=== PATIENT | female | born 1940 | race Caucasian/White ===

== ENCOUNTER 2018-04-13 19:16 | Inpatient (IN) | payer MEDICARE, OTHER ==
[~2018-04-13] VITALS: Ht 152.4 cm; Wt 56.7 kg
[2018-04-13] MEDS ORDERED: MEROPENEM 500MG 500 MG in SODIUM CHLORIDE 0.9% 50ML 50 ML IV SCH (19:45)
[2018-04-13 20:19] LABS: BASOPHILS # (AUTO) 0.1 (0.0-0.1); BASOPHILS % 0.7 % (0.0-1.0); EOSINOPHILS # (AUTO) 0.2 (0.0-0.4); EOSINOPHILS % 2.7 % (0.0-6.0); HEMATOCRIT 35.9 % (34.2-44.1); HEMOGLOBIN 12.2 g/dL (12.0-16.0); LYMPHOCYTES # (AUTO) 1.5 (1.0-3.2); LYMPHOCYTES % 17.9 % (18.0-39.1); MEAN CORPUSCULAR HEMOGLOBIN 29.8 pg (28-32); MEAN CORPUSCULAR VOLUME 87.8 fL (81-99); MONOCYTES # (AUTO) 1.2 (0.2-0.8); MONOCYTES % 14.4 % (4.4-11.3); NEUTROPHILS # (AUTO) 5.4 (2.1-6.9); NEUTROPHILS % 63.9 % (38.7-80.0); PLATELET COUNT 243 x10e3/uL (140-360); RED BLOOD COUNT 4.09 x10e6/uL (3.6-5.1); RED CELL DISTRIBUTION WIDTH 12.7 % (11.7-14.4)
[2018-04-13 20:31] LABS: BILIRUBIN,URINE 1+ (NEGATIVE); CLARITY,URINE SL CLOUDY (CLEAR); COLOR,URINE YELLOW (YELLOW); KETONES,URINE NEGATIVE (NEGATIVE); LEUKOCYTE ESTERASE ,URINE NEGATIVE (NEGATIVE); NITRITE,URINE POSITIVE (NEGATIVE); PROTEIN,URINE DIPSTICK NEGATIVE (NEGATIVE); URINE UROBILINOGEN 0.2 mg/dL (0.2 - 1)
[2018-04-13 20:34] LABS: ALANINE AMINOTRANSFERASE 16 IU/L (0-55); ALBUMIN 3.5 g/dL (3.5-5.0); ALBUMIN/GLOBULIN RATIO 1.1 (0.8-2.0); ALKALINE PHOSPHATASE 52 IU/L (40-150); ANION GAP 12.8 mmol/L (8-16); BACTERIA,URINE FEW /HPF; BLOOD UREA NITROGEN 15 mg/dL (7-26); BUN/CREATININE RATIO 20 (6-25); CALCIUM 8.8 mg/dL (8.4-10.2); CARBON DIOXIDE 27 mmol/L (22-29); CHLORIDE 90 mmol/L (98-107); CREATININE, SERUM 0.75 mg/dL (0.57-1.11); EPITHELIAL CELLS,URINE RARE /LPF; EST GLOMERULAR FILTRATION RATE > 60 ML/MIN (60-); GLUCOSE 120 mg/dL (74-118); RBC,URINE 21-50 /HPF (0-5); SODIUM 127 mmol/L (136-145)
[2018-04-13 20:39] LABS: POTASSIUM 2.8 mmol/L (3.5-5.1)
[2018-04-13] MEDS ORDERED: POTASSIUM CHLORIDE 20 MEQ TAB CR PO STA (20:39)
[2018-04-13] MEDS ORDERED: KCL 20MEQ/.9 SOD CHL 1,000 ML IV ONE (20:45)
[2018-04-13] MEDS: MEROPENEM 500 MG VIAL IV SCH (21:22)
[2018-04-13] MEDS ORDERED: ONDANSETRON HCL INJ 2 MG/ML VIAL IV PRN (21:30)
[2018-04-13] MEDS ORDERED: ATENOLOL50 MG PO (21:46)
[2018-04-13] MEDS ORDERED: ASPIR 8181 MG (21:46)
[2018-04-13] MEDS ORDERED: ATORVASTATIN CA10 MG PO (21:46)
[2018-04-13] MEDS ORDERED: HYDROCHLOROTHIA25 MG PO (21:46)
[2018-04-13] MEDS ORDERED: DIPHENHYDRAMINE25 M2 PO (21:59)
[2018-04-13] MEDS ORDERED: SOMA350 MG PO (21:59)
[2018-04-13] MEDS: CARISOPRODOL 350 MG TAB PO PRN (22:56)
[2018-04-14 05:31] LABS: BASOPHILS # (AUTO) 0.1 (0.0-0.1); BASOPHILS % 0.6 % (0.0-1.0); EOSINOPHILS # (AUTO) 0.3 (0.0-0.4); EOSINOPHILS % 3.5 % (0.0-6.0); HEMOGLOBIN 10.9 g/dL (12.0-16.0); LYMPHOCYTES # (AUTO) 1.8 (1.0-3.2); LYMPHOCYTES % 22.4 % (18.0-39.1); MEAN CORPUSCULAR HEMOGLOBIN 30.2 pg (28-32); MEAN CORPUSCULAR HGB CONC 34.1 g/dL (31-35); MEAN CORPUSCULAR VOLUME 88.6 fL (81-99); MONOCYTES # (AUTO) 1.1 (0.2-0.8); MONOCYTES % 13.7 % (4.4-11.3); NEUTROPHILS # (AUTO) 4.7 (2.1-6.9); NEUTROPHILS % 59.7 % (38.7-80.0); PLATELET COUNT 234 x10e3/uL (140-360); RED BLOOD COUNT 3.61 x10e6/uL (3.6-5.1); RED CELL DISTRIBUTION WIDTH 12.9 % (11.7-14.4)
[2018-04-14 05:47] LABS: ALANINE AMINOTRANSFERASE 14 IU/L (0-55); ALKALINE PHOSPHATASE 40 IU/L (40-150); ANION GAP 10.6 mmol/L (8-16); BLOOD UREA NITROGEN 10 mg/dL (7-26); BUN/CREATININE RATIO 15 (6-25); CALCIUM 8.2 mg/dL (8.4-10.2); CARBON DIOXIDE 26 mmol/L (22-29); CHLORIDE 99 mmol/L (98-107); CREATININE, SERUM 0.67 mg/dL (0.57-1.11); EST GLOMERULAR FILTRATION RATE > 60 ML/MIN (60-); GLUCOSE 90 mg/dL (74-118); POTASSIUM 4.6 mmol/L (3.5-5.1); SODIUM 131 mmol/L (136-145)
[2018-04-14 07:30] VITALS: BP 132/57
[2018-04-14] MEDS: MEROPENEM 500 MG VIAL IV SCH ×3 (08:15→21:20)
[2018-04-14] MEDS: ATORVASTATIN 10 MG TAB PO SCH (08:16)
[2018-04-14] MEDS: ASPIRIN 81 MG CHEW TAB PO SCH (08:16)
[2018-04-14] MEDS ORDERED: ATENOLOL 50 MG TAB PO SCH ×2 (09:00)
[2018-04-14] MEDS ORDERED: DIPHENHYDRAMINE HCL 25 MG CAP PO SCH (09:00)
[2018-04-14] MEDS ORDERED: HYDROCHLOROTHIAZIDE 25 MG TAB PO SCH (09:00)
[2018-04-14 09:12] VITALS: BP 132/57
[2018-04-14 11:02] LABS: % IRON SATURATION 32 % (15-50); IRON 84 ug/dL (50-170); TOTAL IRON BINDING CAPACITY 260 ug/dL (261-478); TRANSFERRIN 186 mg/dL (180-382)
[2018-04-14] MEDS ORDERED: SODIUM CHLORIDE 452MG TAB PO ONE (11:30)
[2018-04-14] MEDS ORDERED: OYST-CAL-D 500MG TABLET PO ONE (12:30)
--- NOTE | 2018-04-14 12:38 | History and Physical ---
CLINICAL HISTORY: The patient is a 77-year-old white woman, patient of Dr. Ratliff, admitted here by Dr. Rivera's office because of bishop resistant ESBL klebsiella urine infection. She is being admitted for meropenem intravenous antibiotics. Her additional problems included severe hyponatremia with sodium of 127, severe hypokalemia with potassium of 2.8 in the setting of hydrochlorothiazide. This patient follows her blood pressure with Dr. Arambula at the [facility]. She is resistant to changing her blood pressure medication, and insists on taking hydrochlorothiazide, even though there is no previous history of congestive heart failure. She does not want an alternative blood pressure medication. She appears to also be resistant to decreased fluid intake. There is history also of hyperlipidemia. She is slightly anemic, hemoglobin 10.9. Apparently, she is surprised by this condition. Urinalysis did show microhematuria. PAST MEDICAL HISTORY: Otherwise noncontributory. She has had bilateral mastectomy for cancer 8 years ago, but she did not require any chemotherapy. There is a history of hysterectomy. PERSONAL/SOCIAL HISTORY: Denies smoking or drinking. She was dental hygienist. FAMILY HISTORY: Father had coronary artery disease. Mother had hypertension. REVIEW OF SYSTEMS: Noncontributory. She does have a urologist assigned to her, but she has not seen the urologist. It is Dr. Camacho at the [facility]. PHYSICAL EXAMINATION GENERAL: She is alert and coherent. VITAL SIGNS: Stable. CARDIAC: Jugular veins are not distended. S1 and S2 were regular. There is no appreciable murmur. LUNGS: Clear. ABDOMEN: Soft. Bowel sounds are present. EXTREMITIES: Showed no cyanosis, clubbing or edema. IMPRESSION 1. Extended spectrum beta-lactamase urinary tract infection, klebsiella, bishop resistant to receive intravenous meropenem. 2. Severe hyponatremia due to diuretics with the patient not wanting to change blood pressure medications. 3. Severe hypokalemia due to diuretics: May require supplementation. 4. Anemia, hemoglobin 10.9. 5. Microhematuria. 6. Hyperlipidemia. 7. Hypertension. RECOMMENDATIONS: Workup for anemia. Correct sodium and potassium as best as possible since the patient wants to continue diuretics. Stool guaiac. Infectious disease consultation with Dr. Amie Rivera. Job#: [id number] ND cc:Demond TAI MD
[2018-04-14 13:13] VITALS: BP 151/85
[2018-04-14] MEDS: ATENOLOL 50 MG TAB PO SCH ×2 (16:22→21:20)
[2018-04-14 20:00] VITALS: BP 139/63
[2018-04-14 21:00] VITALS: BP 139/63
[2018-04-14] MEDS ORDERED: DIPHENHYDRAMINE HCL 25 MG CAP PO PRN (21:00)
--- NOTE | 2018-04-14 21:15 | Consultation ---
DATE OF CONSULTATION: REASON FOR CONSULTATION: UTI, multidrug resistant. HISTORY: Ms. Riley is a pleasant 77-year-old female. The patient who has been having problem with UTI since December on and off. She took several courses of antibiotic, but recently she had ESBL sensitive only to meropenem, so patient was sent to the hospital to be admitted. Patient has been having urgency and frequency, not feeling well, feeling feverish occasionally. She has been on several oral antibiotics since December without any improvement. PAST MEDICAL HISTORY: Otherwise, she had bilateral mastectomy 8 years ago for cancer. SOCIAL HISTORY: There is no smoking, drug abuse, alcohol abuse. FAMILY HISTORY: Otherwise unremarkable. REVIEW OF SYSTEMS: At the present time: HEENT: There is no headache, visual changes, or hearing changes. GI: There is no nausea, no vomiting, no diarrhea. CARDIAC: There is no arrhythmia. NEURO: No seizure activity. SKIN: There is no rash. : There is urgency and frequency. JOINT: There is no erythema or edema or swelling. LABORATORY DATA: Urine culture and blood culture are still pending. White count is 7.8, hemoglobin 10.9, hematocrit 32. Sodium 131; potassium on admission was 2.8, it was corrected. PHYSICAL EXAMINATION: GENERAL: She is currently alert and oriented, does not seem to be in acute distress. VITALS: Stable, currently afebrile. HEENT: She does not appear icteric. NECK: Supple. CHEST: Clear. HEART: S1 and S2. No S3, S4, murmur. ABDOMEN: Soft. Bowel sounds present. No tenderness. EXTREMITIES: No edema. SKIN: No rash. IMPRESSION: Urinary tract infection, multidrug-resistant. Will put her on meropenem 500 intravenously q.8h. Peripherally inserted central catheter line on Monday. Patient to see urologist she has an appointment, to see urologist in [facility] next week. Will arrange outpatient intravenous antibiotic. Please contact [phone] on Monday morning for intravenous antibiotic. Patient could be discharged after the above. Job#: [id number]
[2018-04-14] MEDS: HYDROCHLOROTHIAZIDE 25 MG TAB PO SCH (21:20)
[2018-04-14] MEDS: CARISOPRODOL 350 MG TAB PO PRN (22:50)
[2018-04-15] VITALS (7 sets, daily range): BP systolic 114–160; BP diastolic 56–80
[2018-04-15] MEDS: MEROPENEM 500 MG VIAL IV SCH ×4 (02:20→20:35)
[2018-04-15 06:04] LABS: ANION GAP 12.9 mmol/L (8-16); BLOOD UREA NITROGEN 11 mg/dL (7-26); BUN/CREATININE RATIO 15 (6-25); CALCIUM 8.8 mg/dL (8.4-10.2); CARBON DIOXIDE 28 mmol/L (22-29); CHLORIDE 99 mmol/L (98-107); CREATININE, SERUM 0.72 mg/dL (0.57-1.11); EST GLOMERULAR FILTRATION RATE > 60 ML/MIN (60-); GLUCOSE 92 mg/dL (74-118); POTASSIUM 3.9 mmol/L (3.5-5.1); SODIUM 136 mmol/L (136-145)
[2018-04-15 06:51] LABS: BASOPHILS # (AUTO) 0.1 (0.0-0.1); BASOPHILS % 0.9 % (0.0-1.0); EOSINOPHILS # (AUTO) 0.4 (0.0-0.4); EOSINOPHILS % 5.3 % (0.0-6.0); HEMATOCRIT 34.2 % (34.2-44.1); HEMOGLOBIN 11.5 g/dL (12.0-16.0); LYMPHOCYTES # (AUTO) 1.8 (1.0-3.2); LYMPHOCYTES % 26.7 % (18.0-39.1); MEAN CORPUSCULAR HGB CONC 33.6 g/dL (31-35); MEAN CORPUSCULAR VOLUME 89.3 fL (81-99); MONOCYTES # (AUTO) 0.9 (0.2-0.8); MONOCYTES % 13.7 % (4.4-11.3); NEUTROPHILS # (AUTO) 3.6 (2.1-6.9); NEUTROPHILS % 53.1 % (38.7-80.0); PLATELET COUNT 219 x10e3/uL (140-360); RED BLOOD COUNT 3.83 x10e6/uL (3.6-5.1); RED CELL DISTRIBUTION WIDTH 13.2 % (11.7-14.4)
[2018-04-15] MEDS: POTASSIUM CHLORIDE 20 MEQ TAB CR PO SCH (09:00)
[2018-04-15] MEDS: ASPIRIN 81 MG CHEW TAB PO SCH (09:00)
[2018-04-15] MEDS: ATORVASTATIN 10 MG TAB PO SCH (09:00)
[2018-04-15] MEDS: ATENOLOL 50 MG TAB PO SCH ×2 (17:00→20:35)
[2018-04-15] MEDS: HYDROCHLOROTHIAZIDE 25 MG TAB PO SCH (20:35)
[2018-04-16 00:48] VITALS: BP 153/69
[2018-04-16] MEDS: MEROPENEM 500 MG VIAL IV SCH ×2 (02:07→08:41)
[2018-04-16 05:54] VITALS: BP 157/70
[2018-04-16 07:57] VITALS: BP 151/68
[2018-04-16] MEDS: ATORVASTATIN 10 MG TAB PO SCH (08:41)
[2018-04-16] MEDS: ASPIRIN 81 MG CHEW TAB PO SCH (08:41)
[2018-04-16] MEDS: POTASSIUM CHLORIDE 20 MEQ TAB CR PO SCH (08:41)
[2018-04-16] MEDS ORDERED: POTASSIUM CHLO10 ME1 PO (10:16)
[2018-04-16 10:40] VITALS: BP 151/68
[2018-04-16 10:50] LABS: INR 1.06
[2018-04-16 10:51] LABS: PARTIAL THROMBOPLASTIN TIME 26.5 seconds (23.8-35.5)
[2018-04-16 11:51] VITALS: BP 152/67
--- NOTE | 2018-04-16 12:00 | Discharge Summary ---
CLINICAL HISTORY: This is a 77-year-old white woman admitted via Dr. Rivera's office because of ESBL urinary tract infection. Please refer to my previous dictation concerning details of current illness, past medical history, personal and social history, family history, review of systems, physical examination, and initial laboratory studies. HOSPITAL COURSE: The patient was started with intravenous meropenem. She had no fever. No leukocytosis. She was a little bit anemic with hemoglobin dropping down to 10.9. was negative. Iron TIBC were normal. Additionally, her sodium was 127 at the time of admission. Potassium 2.8. She was resistant to changing blood pressure medication from her diuretic to an alternate blood pressure medication. We therefore continued hydrochlorothiazide and replaced her potassium, which showed nichole to 3.9 at the time of discharge. She was given normal saline. Her sodium increased from 127 to 136 at the time of discharge. She will follow with Dr. 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 Steele to further re-evaluate her drug regimen. She was encouraged to take potassium 10 mEq per day until then. Decrease fluid consumption. She was started on a central line because she could not be fitted with PICC line due to the previous double mastectomy. Dr. Rivera has scheduled her for outpatient intravenous meropenem. DISCHARGE DIAGNOSES 1. Urinary tract infection with Klebsiella, extended spectrum beta-lactamase. To be treated with intravenous meropenem as an outpatient. 2. Anemia. Guaiac-negative and not iron deficient. 3. Severe hyponatremia and hypokalemia due to diuretic usage and excessive fluid intake. 4. Microhematuria. 5. Hypertension. VALERIO ROLAND MD Job#: [id number] [place] cc:Demond TAI MD
== END 2018-04-16 14:23 | disposition home or self-care (01) | DRG 690 ==
LOC: ER 19:16 → ERHOLD 21:26 → MED/SURG2 04-14 07:05
PROVIDERS: ADMIT Internal Medicine Cardiovascular Disease; ATTEND Internal Medicine Cardiovascular Disease
PROC: 02HV33Z Insertion of Infusion Device into Superior Vena Cava, Percutaneous Approach (ICD-10-PCS; principal; 2018-04-16)
DX: N39.0 Urinary tract infection, site not specified (principal); E87.1 Hypo-osmolality and hyponatremia; B96.1 Klebsiella pneumoniae [K. pneumoniae] as the cause of diseases classified elsewhere; B96.89 Other specified bacterial agents as the cause of diseases classified elsewhere; Z16.12 Extended spectrum beta lactamase (ESBL) resistance; E86.0 Dehydration; E87.6 Hypokalemia; E78.5 Hyperlipidemia, unspecified; I10 Essential (primary) hypertension; R31.29 Other microscopic hematuria; D64.9 Anemia, unspecified; T50.2X5A Adverse effect of carbonic-anhydrase inhibitors, benzothiadiazides and other diuretics, initial encounter; R35.0 Frequency of micturition; R39.15 Urgency of urination
CPT/HCPCS: 36415; 80048; 80053; 81001; 82270; 83540; 84466; 85025; 85610; 85730; 87040; 87086; 99284; J2185

== ENCOUNTER 2022-06-22 13:55 | Outpatient (RCR) | payer MEDICARE, OTHER ==
[~2022-06-22 13:55] MED LIST: ASPIR 8181 MG; ATENOLOL50 MG PO; ATORVASTATIN CA10 MG PO; DIPHENHYDRAMINE25 M2 PO; HYDROCHLOROTHIA25 MG PO; POTASSIUM CHLO10 ME1 PO; SOMA350 MG PO
== END 2022-06-27 ==
LOC: PT 13:55
PROVIDERS: ATTEND Specialist
DX: M17.11 Unilateral primary osteoarthritis, right knee (principal); S76.112D Strain of left quadriceps muscle, fascia and tendon, subsequent encounter; S80.02XD Contusion of left knee, subsequent encounter

== ENCOUNTER 2022-06-30 07:01 | Outpatient (RCR) | payer MEDICARE, OTHER | END 2022-07-27 | LOC: PT 07:01 | PROVIDERS: ATTEND Specialist | DX: M17.11 Unilateral primary osteoarthritis, right knee (principal); S76.112D Strain of left quadriceps muscle, fascia and tendon, subsequent encounter; M62.81 Muscle weakness (generalized); S80.02XD Contusion of left knee, subsequent encounter ==